=== PATIENT | female | born 1995 | race Caucasian/White ===

== ENCOUNTER 2022-09-29 20:29 | Emergency (ER) | payer MEDICAID ==
[~2022-09-29] VITALS: Ht 152.4 cm; Wt 81.6 kg
--- NOTE | 2022-09-29 20:35 | NUR ---
gerardo CRUZ to chair F
[2022-09-29 20:39] VITALS: BP 116/71
[2022-09-29] MEDS ORDERED: ACETAMINOPHEN 325 MG TAB PO ONE (20:55)
[2022-09-29] MEDS ORDERED: MECLIZINE 25 MG TAB PO ONE (20:55)
[2022-09-29] MEDS ORDERED: NACL 0.9% 1,000 ML IV ONE (21:00)
[2022-09-29 21:26] LABS: BASOPHILS % (AUTO) 0.4 % (0.0-2.0); EOSINOPHILS # (AUTO) 0.1 K/uL (0-0.4); EOSINOPHILS % (AUTO) 0.7 % (0.0-4.0); HEMOGLOBIN 12.9 g/dL (12.0-16.0); LYMPHOCYTES # (AUTO) 2.4 K/uL (2.5-16.5); LYMPHOCYTES % (AUTO) 18.3 % (20.5-51.1); MEAN CORPUSCULAR HEMOGLOBIN 30 pg (27-31); MEAN CORPUSCULAR HGB CONC 33 g/dL (33-37); MEAN CORPUSCULAR VOLUME 90.5 fL (80-94); MONOCYTES # (AUTO) 0.6 K/uL (0.8-1.0); MONOCYTES % (AUTO) 4.3 % (1.7-9.3); NEUTROPHILS % (AUTO) 76.3 % (42.2-75.2); PLATELET COUNT (AUTO) 301 K/uL (140-450); RED BLOOD CELL COUNT(AUTO) 4.31 MIL/uL (4.20-5.40); RED CELL DISTRIBUTION WIDTH 13.9 % (11.6-13.7); WHITE BLOOD COUNT (AUTO) 13.2 K/uL (4.8-10.8)
[2022-09-29 21:43] LABS: ALBUMIN 3.5 g/dL (3.4-5.0); ANION GAP 15.1 (8-16); CARBON DIOXIDE 23.7 mmol/L (21-32); CREATININE 0.8 mg/dL (0.6-1.3); POTASSIUM 3.8 mmol/L (3.5-5.1); TOTAL BILIRUBIN 0.3 mg/dL (0.0-1.0)
[2022-09-30] MEDS ORDERED: ACETAMINOPHEN 325 MG TAB ONE (00:16)
[2022-09-30] MEDS ORDERED: MECLIZINE 25 MG TAB ONE (00:16)
[2022-09-30 00:26] LABS: APPEARANCE,URINE CLEAR (CLEAR); BILIRUBIN,URINE NEGATIVE (NEGATIVE); BLOOD, URINE 2+ (NEGATIVE); COLOR,URINE YELLOW (YELLOW); LEUKOCYTE ESTERASE ,URINE NEGATIVE (NEGATIVE); NITRITE, URINE NEGATIVE (NEGATIVE); PH,URINE 5.5 (5.0-9.0); UGLUCOSE NEGATIVE (NEGATIVE)
[2022-09-30 00:31] VITALS: BP 119/57
[2022-09-30 00:40] LABS: RBC,URINE 0-5 /HPF (0-5); WBC,URINE 0-5 /HPF (0-5)
--- NOTE | 2022-09-30 02:25 | NUR ---
PT WAS NASAL SWABBED FOR COVID AND FLU
--- NOTE | 2022-09-30 04:05 | NUR ---
Patient discharged with v/s stable. Written and verbal after care instructions given and explained. Patient verbalized understanding. Ambulatory with steady gait. All questions addressed prior to discharge. Advised to follow up with PMD.
== END 2022-09-30 04:05 | disposition home or self-care (01) ==
LOC: MED 20:29
DX: R42 Dizziness and giddiness (principal); Z20.822 Contact with and (suspected) exposure to COVID-19
CPT/HCPCS: 36415; 71045; 80053; 81001; 81025; 83880; 84484; 85025; 85379; 87426; 87804; 96360; 99285; J7030; J8597; 93005